=== PATIENT | female | born 1945 | race Caucasian/White ===

== ENCOUNTER → 2017-01-16 | Outpatient (CLI) | payer OTHER ==
[~2017-01-16] MED LIST: EVISTA60 MG PO
[2017-01-16 09:36] LABS: INR 1.5; PROTHROMBIN TIME (PATIENT) 16.7 SECONDS (10.0-11.7)
== END | disposition home or self-care (01) ==
LOC: CLAB 08:58
PROVIDERS: Internal Medicine Cardiovascular Disease
DX: Z51.81 Encounter for therapeutic drug level monitoring (principal); I48.0 Paroxysmal atrial fibrillation; Z79.01 Long term (current) use of anticoagulants
CPT/HCPCS: 36415; 85610

== ENCOUNTER → 2017-01-19 | Outpatient (CLI) | payer OTHER ==
[2017-01-19 08:19] LABS: INR 1.4; PROTHROMBIN TIME (PATIENT) 15.1 SECONDS (10.0-11.7)
== END | disposition home or self-care (01) ==
LOC: CLAB 07:40
PROVIDERS: Internal Medicine Cardiovascular Disease
DX: I48.0 Paroxysmal atrial fibrillation (principal)
CPT/HCPCS: 36415; 85610